=== PATIENT | male | born 1960 | race Caucasian/White ===

== ENCOUNTER 2023-01-13 18:46 | Inpatient (IN) | payer MEDICAID ==
[~2023-01-13] VITALS: Ht 182.9 cm; Wt 132.0 kg
[~2023-01-13 18:46] MED LIST: CLON0.1T PO; LISI-285 PO; METF-370 PO; METO-158 PO; NIFE1TAB31 PO; NOR10T GT; OMEP20CA74 OR; OXYC10TA44; SIMV-8 PO
[2023-01-13 19:27] LABS: Basophils # (auto) 0 10 ^3/uL (0-0.2); Basophils % (auto) 0.5 % (0.0-2.0); Eosinophils # (auto) 0.3 10 ^3/uL (0-0.8); Eosinophils % (auto) 4.4 % (0.0-7.0); Hematocrit 42.5 % (41.0-53.0); Hemoglobin 14.1 g/dL (13.5-17.5); Lymphocytes # (auto) 1.6 10 ^3/uL (0.4-5.4); Lymphocytes % (auto) 26.3 % (10.0-50.0); Mean Corpuscular Hemoglobin 29.6 pg (28.0-32.0); Mean Corpuscular Hgb Conc. 33.1 g/dL (32.0-36.0); Mean Corpuscular Volume 89.4 fL (80.0-100.0); Monocytes # (auto) 0.6 10 ^3/uL (0-1.3); Monocytes % (auto) 10.4 % (0.0-12.0); Neutrophils # (auto) 3.6 10 ^3/uL (1.6-8.6); Neutrophils % (auto) 58.4 % (37.0-80.0); Nucleated Red Blood Cells % 0.2 %; Red Blood Cells 4.76 10^6/uL (4.5-5.90); Red Cell Distribution Width 15.2 % (11.8-14.3); White Blood Cell 6.1 10^3/uL (4.4-10.8)
[2023-01-13 19:47] LABS: Albumin 3.7 g/dL (3.4-5.0); Bilirubin, Total 0.3 mg/dL (0.2-1.0); Calcium 8.2 mg/dL (8.5-10.1); Potassium 4.4 mmol/L (3.5-5.1); Total Protein 7.2 g/dL (6.4-8.2)
[2023-01-13] MEDS ORDERED: NITROGLYCERIN 0.4 MG SL TAB SL ONE (21:45)
[2023-01-13] MEDS ORDERED: ASPirin 325 MG TAB PO ONE (21:45)
[2023-01-13] MEDS ORDERED: cloNIDine HCL 0.1 MG TAB PO PRN (22:15)
[2023-01-13] MEDS ORDERED: ACETAMINOPHEN 325 MG TAB PO PRN (22:15)
[2023-01-13] MEDS ORDERED: TEMAZEPAM 15 MG CAP PO PRN (22:15)
[2023-01-13] MEDS ORDERED: NITROGLYCERIN 0.4 MG SL TAB SL PRN (22:15)
[2023-01-13] MEDS ORDERED: ONDANSETRON HCL 4 MG/2 ML VIAL IV PRN (22:15)
[2023-01-13] MEDS ORDERED: MORPHINE SULFATE INJ 2 MG/ml SYRG IV PRN (22:15)
[2023-01-13] MEDS ORDERED: DEXTROSE (50%) 50ML SYRG IV PRN (22:15)
[2023-01-14 05:12] LABS: Basophils # (auto) 0 10 ^3/uL (0-0.2); Basophils % (auto) 0.5 % (0.0-2.0); Eosinophils # (auto) 0.2 10 ^3/uL (0-0.8); Eosinophils % (auto) 4.8 % (0.0-7.0); Hematocrit 40.7 % (41.0-53.0); Hemoglobin 13.5 g/dL (13.5-17.5); Lymphocytes # (auto) 1.3 10 ^3/uL (0.4-5.4); Lymphocytes % (auto) 27.4 % (10.0-50.0); Mean Corpuscular Hemoglobin 29.5 pg (28.0-32.0); Mean Corpuscular Hgb Conc. 33.1 g/dL (32.0-36.0); Mean Corpuscular Volume 89.3 fL (80.0-100.0); Monocytes # (auto) 0.6 10 ^3/uL (0-1.3); Neutrophils # (auto) 2.7 10 ^3/uL (1.6-8.6); Neutrophils % (auto) 54.3 % (37.0-80.0); Nucleated Red Blood Cells % 0.2 %; Red Blood Cells 4.56 10^6/uL (4.5-5.90); Red Cell Distribution Width 15.6 % (11.8-14.3); White Blood Cell 4.9 10^3/uL (4.4-10.8)
[2023-01-14 05:24] LABS: Albumin 3.3 g/dL (3.4-5.0); Calcium 8.2 mg/dL (8.5-10.1); Potassium 3.7 mmol/L (3.5-5.1)
[2023-01-14 05:27] LABS: BUN/Creatinine Ratio 18.1
[2023-01-14 05:39] LABS: Bilirubin, Total 0.4 mg/dL (0.2-1.0); Total Protein 6.8 g/dL (6.4-8.2)
[2023-01-14] MEDS ORDERED: FUROSEMIDE 20 MG TAB PO SCH (06:00)
[2023-01-14] MEDS: hydrALAZINE HCL 25 MG TAB PO SCH ×2 (06:23→14:00)
[2023-01-14] MEDS: InsuLIN REG 1unit/0.01ml Soln (100units/ml) SC SCH ×2 (07:00→11:30)
[2023-01-14] MEDS: ACCU-CHEK COMFORT CURVE STRIP VI SCH ×2 (07:02→11:30)
[2023-01-14] MEDS ORDERED: ASPirin 81 mg TAB PO SCH (10:00)
[2023-01-14] MEDS ORDERED: amLODIPine BESYLATE 5 MG TAB PO SCH (10:00)
[2023-01-14] MEDS ORDERED: PATIENTS OWN MEDICATION (xarelto 20 MG) PO SCH (10:00)
[2023-01-14 11:11] VITALS: BP 172/72
[2023-01-14 12:30] VITALS: BP 172/73
[2023-01-14] MEDS ORDERED: LISINOPRIL 10 MG TAB PO SCH (13:30)
[2023-01-14] MEDS ORDERED: FURO20TA3 PO (13:39)
[2023-01-14] MEDS ORDERED: HYDR50TA69 PO (13:39)
[2023-01-14] MEDS ORDERED: LISI40TA11 PO ×2 (13:39)
[2023-01-14] MEDS ORDERED: RIVA20TA PO ×2 (13:39)
[2023-01-14] MEDS ORDERED: POTA10TA51 PO (13:41)
[2023-01-14] MEDS ORDERED: DILT60TA PO (13:43)
[2023-01-14] MEDS ORDERED: AMLO-489 PO (13:46)
[2023-01-14] MEDS ORDERED: NIFEdipine ER 30 MG TAB PO ONE (14:00)
[2023-01-14] MEDS ORDERED: NIFEdipine ER 30 MG TAB PO SCH (14:00)
[2023-01-14] MEDS ORDERED: LISINOPRIL 20 MG TAB PO ONE (14:00)
[2023-01-14] MEDS ORDERED: RIVAROXABAN 20 MG TAB PO SCH (18:00)
[2023-01-14] MEDS ORDERED: ATORVASTATIN 20 MG TAB PO SCH (22:00)
[2023-01-15] MEDS ORDERED: metFORMIN HYDROCHLORIDE 500 MG TAB PO SCH (10:00)
[2023-01-15] MEDS ORDERED: LISINOPRIL 20 MG TAB PO SCH (10:00)
[2023-01-15] MEDS ORDERED: PATIENTS OWN MEDICATION (Simvastatin 20 MG) PO SCH (10:00)
== END 2023-01-14 17:00 | disposition home or self-care (01) | DRG 201 ==
LOC: ER 18:46 → TELE 22:10 → TELE-EAST 01-14 11:01
PROVIDERS: ADMIT Nurse Practitioner; ATTEND Internal Medicine Geriatric Medicine
DX: R00.1 Bradycardia, unspecified (principal); D68.9 Coagulation defect, unspecified; R07.89 Other chest pain; I48.91 Unspecified atrial fibrillation; E11.9 Type 2 diabetes mellitus without complications; E66.9 Obesity, unspecified; E78.5 Hyperlipidemia, unspecified; I10 Essential (primary) hypertension; J44.9 Chronic obstructive pulmonary disease, unspecified; Z20.822 Contact with and (suspected) exposure to COVID-19; Z68.39 Body mass index [BMI] 39.0-39.9, adult; Z79.01 Long term (current) use of anticoagulants; Z82.49 Family history of ischemic heart disease and other diseases of the circulatory system; Z79.84 Long term (current) use of oral hypoglycemic drugs
CPT/HCPCS: 36415; 71045; 80053; 82962; 83880; 84484; 85025; 85379; 87426; 93005; 93306; G0378